=== PATIENT | female | born 1940 | race Caucasian/White ===

== ENCOUNTER 2018-07-15 12:25 | Emergency (ER) | payer MEDICARE, BC ==
--- NOTE | 2018-07-15 12:54 | EDM.PDOC ---
ED HPI GENERAL MEDICAL PROBLEM - General Chief Complaint: Upper Extremity Injury/Pain Stated Complaint: LEFT MIDDLE FINGER CUT Time Seen by Provider: 07/15/18 12:31 Source of Information: Reports: Patient - History of Present Illness INITIAL COMMENTS - FREE TEXT/NARRATIVE: Patient indicates she fell in her basement. While doing so she reached out for a bench to steady herself. This caused a splinter to go inter her left middle finger. It is still lodged in the finger. Denies head injury, LOC, no other complaints. No pain or bruising. Onset: Today, Sudden Location: Reports: Upper Extremity, Left Associated Symptoms: Reports: No Other Symptoms - Related Data Allergies Allergy/AdvReac Type Severity Reaction Status Date / Time NO Inhibitors Allergy Cough Verified 11/12/14 05:34 latex Allergy Other Verified 11/12/14 05:34 metformin Allergy Stomach Verified 11/12/14 05:34 Upset procaine [Procaine] Allergy Nausea Verified 11/12/14 05:34 Home Meds: Home Meds Albuterol [Proair HFA] 2 puff INH Q4H 04/05/14 [History] Chromium 1 tab PO DAILY 04/05/14 [History] Docusate Sodium/Sennosides [Senokot-S] 2 tab PO BEDTIME PRN 04/05/14 [History] HCTZ/Triamterene [Maxzide 25-37.5 MG] 1 tab PO DAILY 04/05/14 [History] Insulin Detemir [Levemir] 30 units SQ BEDTIME 04/05/14 [History] Meloxicam [Mobic] 1 tab PO DAILY 04/05/14 [History] Metoprolol Succinate 0.5 tab PO DAILY 04/05/14 [History] Multivitamin with Minerals [Multiple Vitamin] 1 tab PO DAILY 04/05/14 [History] [place]-3 Fatty Acids [[place]-3] 1 cap PO TID 04/05/14 [History] Saxagliptin [Onglyza] 1 tab PO DAILY 04/05/14 [History] Simvastatin [Zocor] 1 tab PO BEDTIME 04/05/14 [History] Solifenacin Succinate [Vesicare] 1 tab PO DAILY 04/05/14 [History] Amoxicillin/Potassium Clav [Augmentin 875-125 Tablet] 1 each PO BID 11/12/14 [ History] Ondansetron HCl [Zofran] 4 mg PO Q8H PRN #10 ml 11/12/14 [Rx] Review of Systems - Review of Systems Review Of Systems: See Below Constitutional: Reports: No Symptoms Eyes: Reports: No Symptoms Ears: Reports: No Symptoms Nose: Reports: No Symptoms Mouth/Throat: Reports: No Symptoms Respiratory: Reports: No Symptoms Cardiovascular: Reports: No Symptoms GI/Abdominal: Reports: No Symptoms Genitourinary: Reports: No Symptoms Musculoskeletal: Reports: No Symptoms Skin: Reports: Wound (left middle finger) Neurological: Reports: No Symptoms Psychiatric: Reports: No Symptoms ED EXAM, GENERAL - Physical Exam Exam: See Below Exam Limited By: No Limitations General Appearance: Alert, WD/WN, No Apparent Distress Respiratory/Chest: No Respiratory Distress, Lungs Clear, Normal Breath Sounds, No Accessory Muscle Use, Chest Non-Tender Cardiovascular: Normal Peripheral Pulses, Regular Rate, Rhythm, No Edema, No Gallop, No JVD, No Murmur, No Rub Extremities: Normal Inspection, Normal Range of Motion, Non-Tender, Normal Capillary Refill, No Pedal Edema Neurological: Alert, Oriented, CN II-XII Intact, Normal Cognition, Normal Gait, Normal Reflexes, No Motor/Sensory Deficits Skin Exam: Wound/Incision (puncture wound with entry site. Sliver visible under skin, no exit) ED TRAUMA EXTREMITY PROCEDURES - Laceration/Wound Repair Left Digit - 3rd (Middle) Lac/Wound Length In cm: 1 Appearance: Linear Distal NVT: Neuro & Vascular Intact Anesthetic Type: Local Local Anesthesia - Lidocaine (Xylocaine): 1% Plain Local Anesthetic Volume: 3cc Skin Prep: Chlorhexidine (Hibiciens) Exploration/Debridement/Repair: Wound Explored, In a Bloodless Field, Foreign Material Removed (2 cm wooden sliver) Closed With: Sutures Suture Size: 3-0 # of Sutures: 2 Suture Type: Nylon, Interrupted Tetanus Status Addressed: Yes Complications: No Course - Orders/Labs/Meds Orders: Active Orders 24 hr Category Date Time Status Fingers Third Digit Lt F2 [CR] Stat Exams 07/15/18 12:38 Ordered Lidocaine 1% [Xylocaine-MPF 1%] Med 07/15/18 12:46 Once 5 ml INJECT ONETIME ONE Medication Orders Lidocaine HCl (Xylocaine-Mpf 1%) 5 ml INJECT ONETIME ONE Stop: 07/15/18 12:47 Meds: Medications Generic Name Dose Route Start Last Admin Trade Name Rebecca PRN Reason Stop Dose Admin Lidocaine HCl 5 ml 07/15/18 12:46 Xylocaine-Mpf 1% INJECT 07/15/18 12:47 ONETIME ONE Departure - Departure Time of Disposition: 13:43 Disposition: Home, Self-Care 01 Condition: Good Clinical Impression: Puncture wound of finger with foreign body without damage to nail - Discharge Information Instructions: Puncture Wound, [id number], Sutured Wound Care, [id number], Wound Infection, [id number] Additional Instructions: Plan 1. Follow up with primary for suture removal in 7-10 days 2. Keep wound clean and dry. May shower but avoid submerging the wound in any water until fully healed and closed 3. Watch for signs of infection. These can include fever, redness, swelling, drainage from wound, or a red streak running up from the wound 4. Please call if you have any additional questions or concerns - Problem List & Annotations (1) Puncture wound of finger with foreign body without damage to nail SNOMED Code(s): 869824606 Code(s): S61.249A - PNCTR W FOREIGN BODY OF UNSP FINGER W/O DAMAGE TO NAIL, INIT Status: Acute Priority: Low Current Visit: Yes Qualifiers: Encounter type: initial encounter Qualified Code(s): S61.249A - Puncture wound with foreign body of unspecified finger without damage to nail, initial encounter - Problem List Review Problem List Initiated/Reviewed/Updated: Yes - My Orders Last 24 Hours: My Active Orders 07/15/18 12:38 Fingers Third Digit Lt F2 [CR] Stat 07/15/18 12:46 Lidocaine 1% [Xylocaine-MPF 1%] 5 ml INJECT ONETIME ONE - Assessment/Plan Last 24 Hours: My Active Orders 07/15/18 12:38 Fingers Third Digit Lt F2 [CR] Stat 07/15/18 12:46 Lidocaine 1% [Xylocaine-MPF 1%] 5 ml INJECT ONETIME ONE Assessment:: left third finger puncture with foreign body Plan: Plan 1. Follow up with primary for suture removal in 7-10 days 2. Keep wound clean and dry. May shower but avoid submerging the wound in any water until fully healed and closed 3. Watch for signs of infection. These can include fever, redness, swelling, drainage from wound, or a red streak running up from the wound 4. Please call if you have any additional questions or concerns
--- NOTE | 2018-07-15 13:32 | CR ---
[id number] RAD/RAD Fingers Left EXAM: RAD Fingers Left CLINICAL DATA: FOREIGN BODY COMPARISON: NO PREVIOUS SIMILAR EXAM IS AVAILABLE. FINDINGS: Extensive degenerative changes are seen. No fracture or dislocation is seen. There is no radiopaque foreign body in the soft tissues. There is no air in the soft tissues. There is no cortical thickening or periosteal reaction either. IMPRESSION: NEGATIVE PLAIN FILM EXAM. Armando Peters MD 07/15/18 [id number] Thank you for allowing us to participate in the care of your patient.
== END 2018-07-15 13:59 | disposition home or self-care (01) ==
LOC: VM.ED 12:25
DX: S61.247A Puncture wound with foreign body of left little finger without damage to nail, initial encounter (principal); Z88.8 Allergy status to other drugs, medicaments and biological substances; Z79.899 Other long term (current) drug therapy; Z91.040 Latex allergy status; Z79.4 Long term (current) use of insulin; W18.30XA Fall on same level, unspecified, initial encounter; Y92.008 Other place in unspecified non-institutional (private) residence as the place of occurrence of the external cause
CPT/HCPCS: 12001; 73140; 99283; J2001

== ENCOUNTER 2019-01-12 09:24 | Day surgery (SDC) | payer MEDICARE, BC ==
[~2019-01-12 09:24] MED LIST: Lactated Ringers 1,000 ML IV SCH
[2019-01-12] MEDS ORDERED: Lidocaine 4% 5 ML Amp ONE (10:36)
[2019-01-12] MEDS ORDERED: Midazolam 1 MG/ML 2 ML SDV ONE (10:41)
[2019-01-12] MEDS ORDERED: fentaNYL 100 MCG/2 ML SDV ONE (10:41)
[2019-01-12] MEDS ORDERED: Propofol 200 MG/20 ML SDV ONE (10:41)
--- NOTE | 2019-01-12 15:14 | OR ---
PREOPERATIVE DIAGNOSES: Bloating and upper abdominal pain. POSTOPERATIVE DIAGNOSES: Bloating and upper abdominal pain. PROCEDURE PERFORMED: EGD with antral biopsy. INDICATIONS: Ms. Goldman is a 78-year-old female with a history of increasing abdominal discomfort in the epigastric region and bloating, presents for EGD for further evaluation. PROCEDURE IN DETAIL: This was done in the endoscopy suite. Sedation given per anesthesia. The scope was inserted across the pharynx into the esophagus, into the stomach, through the pylorus into the 1st and 2nd portion of the duodenum. The 1st and 2nd portion of duodenum were normal. The scope was slowly withdrawn and retroflexed. No abnormalities. I did do 2 biopsies of the antrum for H. pylori. The scope was slowly withdrawn. The esophagus itself looked normal as well. FINAL DIAGNOSES: Normal EGD. Antral biopsies pending for Helicobacter pylori. BKD: 01/12/2019 11:22:59 MODL: 01/12/2019 15:07:56 /[id number]
== END 2019-01-12 12:11 | disposition home or self-care (01) ==
LOC: VM.SDS 09:24
PROVIDERS: ATTEND Surgery
DX: R14.0 Abdominal distension (gaseous) (principal); R10.10 Upper abdominal pain, unspecified; K21.9 Gastro-esophageal reflux disease without esophagitis; R11.2 Nausea with vomiting, unspecified; K59.00 Constipation, unspecified; N32.81 Overactive bladder; E78.5 Hyperlipidemia, unspecified; I12.9 Hypertensive chronic kidney disease with stage 1 through stage 4 chronic kidney disease, or unspecified chronic kidney disease; E11.22 Type 2 diabetes mellitus with diabetic chronic kidney disease; N18.9 Chronic kidney disease, unspecified; M19.049 Primary osteoarthritis, unspecified hand; M19.031 Primary osteoarthritis, right wrist; Z88.0 Allergy status to penicillin; Z88.8 Allergy status to other drugs, medicaments and biological substances; Z91.040 Latex allergy status; Z79.4 Long term (current) use of insulin; Z79.899 Other long term (current) drug therapy; Z87.891 Personal history of nicotine dependence
CPT/HCPCS: 43239; 82962; J2250; J2704; J3010; J7120; 00731; 88305